=== PATIENT | male | born 2005 | race Caucasian/White ===

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

== ENCOUNTER 2023-06-18 16:32 | Emergency (ER) | payer OTHER ==
[~2023-06-18] VITALS: Ht 193 cm; Wt 108.9 kg
[2023-06-18 16:39] VITALS: BP 134/80
== END 2023-06-18 18:10 | disposition home or self-care (01) ==
LOC: ER 16:32
DX: S60.221A Contusion of right hand, initial encounter (principal); Y04.0XXA Assault by unarmed brawl or fight, initial encounter; G40.909 Epilepsy, unspecified, not intractable, without status epilepticus; F17.210 Nicotine dependence, cigarettes, uncomplicated
CPT/HCPCS: 73130; 96372; 99283-25; J1885

== ENCOUNTER 2023-07-15 04:07 | Emergency (ER) | payer OTHER ==
[~2023-07-15] VITALS: Ht 190.5 cm; Wt 99.8 kg
[2023-07-15 04:36] LABS: BASOPHILS ABSOLUTE AUTO 0.06 K/mm3 (0.00-0.23); BASOPHILS PERCENT AUTO 1 % (0-2); EOSINOPHILS PERCENT AUTO 2 % (0-6); Hematocrit 43.3 % (37.0-53.0); IMMATURE GRAN ABSOLUTE AUTO 0.02 K/mm3 (0.00-0.10); IMMATURE GRAN PERCENT AUTO 0 % (0-1); LYMPHOCYTES ABSOLUTE AUTO 2.52 K/mm3 (0.84-5.20); LYMPHOCYTES PERCENT AUTO 37 % (21-46); MONOCYTES ABSOLUTE AUTO 0.85 K/mm3 (0.16-1.47); MONOCYTES PERCENT AUTO 13 % (4-13); Mean Corpuscular HGB 30.5 pg (26.0-34.0); Mean Corpuscular HGB Conc 34.6 g/dL (31.5-36.5); Mean Corpuscular Volume 88 fL (80-100); Mean Platelet Volume 11.2 fL (9.1-12.4); NEUTROPHILS ABSOLUTE AUTO 3.23 K/mm3 (1.96-9.15); NEUTROPHILS PERCENT AUTO 48 % (41-73); Platelet Count 232 K/mm3 (150-400); RDW Coefficient Variation 12.7 % (11.7-14.2); RDW Standard Deviation 40.8 fL (35.1-46.3); Red Blood Cell Count 4.91 M/mm3 (4.30-5.90); White Blood Cell Count 6.78 K/mm3 (4.00-11.30)
[2023-07-15 04:51] LABS: Albumin/Globulin Ratio 1.1 (0.8-1.8); Bilirubin, Total 0.3 mg/dL (0.1-1.0); Bun/Creatinine Ratio 9.7 (12.0-20.0); Calcium, Blood 9.3 mg/dL (8.5-10.1); Creatinine, Blood 0.93 mg/dL (0.60-1.20); Globulin, Blood 3.6 g/dL (2.2-4.0); Potassium, Blood 3.9 mmol/L (3.5-5.5); Total Protein, Blood 7.6 g/dL (6.4-8.2)
[2023-07-15 06:00] VITALS: BP 115/75
== END 2023-07-15 06:09 | disposition home or self-care (01) ==
LOC: ER 04:07
PROVIDERS: Emergency Medicine
DX: G43.909 Migraine, unspecified, not intractable, without status migrainosus (principal); F10.90 Alcohol use, unspecified, uncomplicated; F17.210 Nicotine dependence, cigarettes, uncomplicated
CPT/HCPCS: 80053; 85025; 99284

== ENCOUNTER 2023-08-04 15:21 | Emergency (ER) | payer OTHER ==
[~2023-08-04] VITALS: Ht 190.5 cm; Wt 113.4 kg
[2023-08-04 15:24] VITALS: BP 156/104
== END 2023-08-04 16:22 | disposition home or self-care (01) ==
LOC: ER 15:21
DX: S83.004A Unspecified dislocation of right patella, initial encounter (principal); W54.1XXA Struck by dog, initial encounter; Z87.891 Personal history of nicotine dependence; J44.9 Chronic obstructive pulmonary disease, unspecified
CPT/HCPCS: 29505; 73560-RT; 96374-59; 96375-59; 99283-25; J2405; J3010

== ENCOUNTER 2023-10-11 19:17 | Emergency (ER) | payer OTHER ==
[~2023-10-11] VITALS: Ht 193 cm; Wt 111.1 kg
[2023-10-11 20:45] VITALS: BP 134/92
== END 2023-10-11 20:55 | disposition home or self-care (01) ==
LOC: ER 19:17
DX: G40.909 Epilepsy, unspecified, not intractable, without status epilepticus (principal); S09.90XA Unspecified injury of head, initial encounter; W10.9XXA Fall (on) (from) unspecified stairs and steps, initial encounter; Z63.79 Other stressful life events affecting family and household
CPT/HCPCS: 99285

== ENCOUNTER 2024-05-04 22:49 | Observation (INO) | payer OTHER ==
[~2024-05-04] VITALS: Ht 193 cm; Wt 111.1 kg
[~2024-05-04 22:49] MED LIST changes: +IBUP800 PO; +LIDO700A20 TOP; +Robaxin750 MG PO
[2024-05-04] MEDS ORDERED: HYDHCL25 PO (23:36)
[2024-05-04] MEDS ORDERED: ESCI10 PO (23:36)
[2024-05-04 23:39] LABS: BASOPHILS ABSOLUTE AUTO 0.08 K/mm3 (0.00-0.23); BASOPHILS PERCENT AUTO 1 % (0-2); EOSINOPHILS PERCENT AUTO 3 % (0-6); Hematocrit 44.5 % (37.0-53.0); Hemoglobin 15.3 g/dL (13.5-17.5); IMMATURE GRAN ABSOLUTE AUTO 0.01 K/mm3 (0.00-0.10); IMMATURE GRAN PERCENT AUTO 0 % (0-1); LYMPHOCYTES ABSOLUTE AUTO 2.79 K/mm3 (0.84-5.20); LYMPHOCYTES PERCENT AUTO 32 % (21-46); MONOCYTES ABSOLUTE AUTO 0.95 K/mm3 (0.16-1.47); MONOCYTES PERCENT AUTO 11 % (4-13); Mean Corpuscular HGB 30.4 pg (26.0-34.0); Mean Corpuscular HGB Conc 34.4 g/dL (31.5-36.5); Mean Corpuscular Volume 88 fL (80-100); Mean Platelet Volume 10.6 fL (9.1-12.4); NEUTROPHILS ABSOLUTE AUTO 4.73 K/mm3 (1.96-9.15); NEUTROPHILS PERCENT AUTO 53 % (41-73); Platelet Count 253 K/mm3 (150-400); RDW Coefficient Variation 12.2 % (11.7-14.2); RDW Standard Deviation 39.3 fL (35.1-46.3); Red Blood Cell Count 5.04 M/mm3 (4.30-5.90); White Blood Cell Count 8.86 K/mm3 (4.00-11.30)
[2024-05-04 23:53] LABS: Source, Urine Clean Catch
[2024-05-04 23:55] LABS: Bilirubin, Urine Neg (Neg); Blood, Urine Neg (Neg); Glucose Qualitative, Urine Neg (Neg); Ketones, Urine Neg (Neg); Leukocyte Esterase, Urine 1+ (Neg); Nitrite, Urine Neg (Neg); Protein, Urine Neg (Neg); Urobilinogen, Urine NORM (Normal)
[2024-05-05 00:02] LABS: Appearance, Urine Clear (Clear); Bacteria Rare /hpf; Color, Urine Yellow (P-Yellow); Red Blood Cells, Urine Not Seen /hpf (0-2); Squamous Epithelial Cells Not Seen /hpf (Few)
[2024-05-05 00:03] LABS: Ethanol (Alcohol), Blood, Med <3 mg/dL; Salicylate <1.7 mg/dL (2.8-20.0)
[2024-05-05 00:07] LABS: Alanine Aminotransfer (ALT/SGP 28 U/L (12-78); Albumin, Blood 4.1 g/dL (3.4-5.0); Albumin/Globulin Ratio 1.1 (0.8-1.8); Alk Phos 65 U/L (50-136); Anion Gap 11 mmol/L (3-11); Aspartate Aminotrans (AST/SGOT 20 U/L (12-37); Bilirubin, Total 0.2 mg/dL (0.1-1.0); Blood Urea Nitrogen 17 mg/dL (8-24); Bun/Creatinine Ratio 18.4 (12.0-20.0); CO2, Blood 23 mmol/L (21-32); Chloride, Blood 110 mmol/L (98-108); Creatinine, Blood 0.93 mg/dL (0.60-1.20); Globulin, Blood 3.8 g/dL (2.2-4.0); Glomerular Filtration Rate 121 (60-); Glucose, Blood 116 mg/dL (70-99); Potassium, Blood 3.8 mmol/L (3.5-5.5); Sodium, Blood 140 mmol/L (136-145); Total Protein, Blood 7.9 g/dL (6.4-8.2)
[2024-05-05 00:09] LABS: Acetaminophen, Random <2.0 ug/mL (10.0-30.0)
[2024-05-05 00:09] LABS: U Amphetamine Screen Not Detected; U Barbituate Screen Not Detected; U Benzodiazapine Screen Not Detected; U Buprenorphine Screen Not Detected; U Cannabinoids Screen Not Detected; U Cocaine Screen Not Detected; U Methadone Screen Not Detected; U Methamphetamine Screen Not Detected; U Opiates Screen Not Detected; U Oxycodone Screen Not Detected; U Phencyclidine Screen Not Detected
[2024-05-05 10:41] VITALS: BP 112/69
[2024-05-05 14:33] LABS: Influenza A, PCR NEGATIVE (NEGATIVE); Influenza B, PCR NEGATIVE (NEGATIVE); Resp Syncytial Virus, PCR NEGATIVE (NEGATIVE); SARS-Cov-2 (COVID-19) PCR, MMC NEGATIVE (NEGATIVE)
[2024-05-10] MEDS ORDERED: MELA3 PO (09:17)
[2024-05-10] MEDS ORDERED: SERT100 PO (09:17)
[2024-05-10] MEDS ORDERED: NICO2 PO (09:19)
[2024-05-10] MEDS ORDERED: QUET200 PO (09:19)
== END 2024-05-05 15:49 | disposition other institution (70) ==
LOC: ER 22:49 → EOR 22:50
PROVIDERS: Physician Assistant; ADMIT Emergency Medicine
DX: R45.851 Suicidal ideations (principal); F32.A Depression, unspecified; F41.9 Anxiety disorder, unspecified; F17.210 Nicotine dependence, cigarettes, uncomplicated; Z79.899 Other long term (current) drug therapy
CPT/HCPCS: 0241U; 80053; 81001; 85025; 87086; 93005; 93010; 99285-25; G0378; G0480

== ENCOUNTER 2024-05-05 12:49 | Inpatient (IN) | payer OTHER ==
[~2024-05-05 12:49] MED LIST changes: +ESCI10 PO; +HYDHCL25 PO
[2024-05-05] MEDS ORDERED: Haloperidol 5 MG Tab PO PRN (16:20)
[2024-05-05] MEDS ORDERED: TraZODone HCl 50 MG Tab PO PRN (16:20)
[2024-05-05] MEDS ORDERED: DiphenhydrAMINE HCl 50 MG Cap PO PRN (16:25)
[2024-05-05] MEDS ORDERED: Melatonin 3 MG Tab PO PRN (16:25)
[2024-05-05] MEDS ORDERED: LORazepam 2 MG Tab PO PRN (16:25)
[2024-05-05] MEDS ORDERED: OLANZapine 10 MG Vial IM PRN (16:25)
--- NOTE | 2024-05-05 16:44 | NUR ---
Admitted 15:52, All belongings logged, none in safe Bin #:[id number], [id number]
--- NOTE | 2024-05-05 17:47 | NUR ---
ADMISSION NOTE/SHIFT SUMMARY: PT ARRIVED TO [facility] AT 1552, PLEASANT AND COOPERATIVE WITH STAFF AND PEERS. PT WAS ORIENTED TO THE [facility] AND TO HIS ROOM. HIS BELONGINGS AND PHONE WERE PUT IN A BELONGINGS CRATE AND CLOSED WITH A NUMBERED ZIP TIE. PT DENIES SI, HI, AVH AND ANXIETY AT THIS TIME. HE IS PRESENTLY IN HIS ROOM. HE WAS GIVEN A JOURNAL AND A BENDY PEN.
[2024-05-05 19:34] VITALS: BP 129/87
--- NOTE | 2024-05-06 05:21 | NUR ---
Pt is A&O x4, calm, cooperative, eye contact is good. Pt reports his mood as "good," affect is euthymic. Pt denies SI, HI, and AVH. He denies current anxiety. Pt reports current back pain 4/10w RT a prior injurty. Pt is med compliant and received PRN trazadone and melatonin for sleep. Pt spent the evening watching TV with peers.
[2024-05-06 08:30] VITALS: BP 119/75
[2024-05-06] MEDS ORDERED: Nicotine Polacrilex 2 MG Gum PO PRN (08:40)
[2024-05-06] MEDS ORDERED: Citalopram Hydrobromide 20 MG Tab PO SCH (09:00)
[2024-05-06] MEDS ORDERED: Sertraline HCl 50 MG Tab PO SCH (09:00)
--- NOTE | 2024-05-06 17:49 | NUR ---
SHIFT SUMMARY PT A/O X4; PLEASANT AND COOPERATIVE WITH CARE. PT COMPLIANT WITH MEDICATIONS AND HAS PARTICIPATED IN GROUP ACTIVITIES THIS SHIFT. PT DENIES SI, HI, AH, VH, AND TH FOR THIS RN. GIVEN PRN NICOTINE GUM X1 THIS SHIFT. PT REPORTS THAT HIS REPORT IS "GOOD" THIS SHIFT AND HE SLEPT VERY WELL LAST NIGHT. PT STARTED ON ZOLOFT AND TO HAVE HIS FIRST DOSE TOMORROW.
[2024-05-06 19:31] VITALS: BP 127/79
[2024-05-06] MEDS ORDERED: QUEtiapine Fumarate 100 MG Tab PO SCH (21:00)
--- NOTE | 2024-05-07 05:20 | NUR ---
A&O x4, calm, cooperative, eye contact is good. Pt describes his mood as "good" and affect is congruent/euthymic. Pt denies SI, HI, and AVH. He denies anxiety and endorses back pain 3/10w. Pt spent the evening watching TV with peers. Pt received PRN trazodone and melatonin for sleep. He appeared to sleep all night.
[2024-05-07 08:34] VITALS: BP 105/59
--- NOTE | 2024-05-07 18:00 | NUR ---
BHARAT WILLIAMSON PT AA&OX4. PLEASANT AND COOPERATIVE WITH CARE. SPEECH AND EYE CONTACT APPROPRIATE. UP FOR ADLS, MEALS, AND GROUP. REPORTS THAT HE IS FEELING BETTER THAN YESTERDAY. PT COMPLIANT WITH MEDICATIONS. DR. LEIJA INCREASED ZOLOFT FROM 50MG-100MG. SEROQUEL INCREASED FROM 100MG-150MG. TRAZADONE DC. PT DENIES ANY MEDICATION SIDE EFFECTS. PT SPOKE WITH FAMILY TODAY. REPORTS GOOD FAMILY SUPPORT. DENIES ANY CURRENT NEEDS. WILL CONTINUE CURRENT PLAN OF CARE
[2024-05-07] MEDS ORDERED: QUEtiapine Fumarate 50 MG TAB PO SCH (21:00)
[2024-05-08] MEDS ORDERED: Sertraline HCl 100 MG Tab PO SCH (09:00)
[2024-05-08 12:11] VITALS: BP 138/81
--- NOTE | 2024-05-08 16:52 | NUR ---
SHIFT SUMMARY HAS BEEN UP IN GROUPS, MEALS AND MILIEU. HAS LISTENED TO MUSIC AND BEEN COMPLIANT WITH CARE. CALM AND EUTHYMIC THROUGH OUT THE DAY. WILL CONTINUE TO MONITOR.
[2024-05-08] MEDS ORDERED: QUEtiapine Fumarate 200 MG Tab PO SCH (21:00)
--- NOTE | 2024-05-08 21:25 | NUR ---
PATIENT REPORTS THAT HE WOULD LIKE "WHAT I USED TO HAVE" FOR HIS NIGHTTIME MEDS, IN ORDER TO FACILITATE THE BEST SLEEP POSSIBLE. HE WILL ADVOCATE FOR SELF TO DOCTOR.
--- NOTE | 2024-05-09 08:11 | NUR ---
Marcel received a call from [employer] advising that pt is scheduled to meet with a PCP named Shelia at the [facility] on 05/15/2024 at 1430pm.
--- NOTE | 2024-05-09 11:17 | NUR ---
WOKE PT UP TO GIVE MORNING MED. HE IS STILL SLEEPY AND WOULD LIKE TO SLEEP MORE. TOLD HIM IT IS OK BUT I WILL WAKE HIM UP TO INTERVIEW HIM BEFORE LUNCH.
--- NOTE | 2024-05-09 17:21 | NUR ---
PT UP AND WATCHED A MOVIE THIS AFTERNOON. LET HIM KNOW THAT HIS DISCHARGE WILL BE LATER THAN 8AM IT TAKES TIME TO GET ALL THE PAPERS AND DISCHARGE INSTRUCTIONS TOGETHER. HE CALLED HIS MOM TO LET HER KNOW. HE WAS NOT TO HAPPY ABOUT THIS NEWS, BUT EXPLAINED THE PROCESS TO HIM. STILL DENIES TO BE SI. WILL CONTINUE TO MONITOR.
[2024-05-09 18:53] VITALS: BP 131/75
[2024-05-09 20:46] VITALS: BP 108/92
--- NOTE | 2024-05-10 05:46 | NUR ---
PATIENT SLEPT THROUGH THE NIGHT WITHOUT ANY NOTED BEHAVIORS OR ISSUES. HE WILL DISCHARGE LATER TODAY. HIS MOTHER WILL BE HERE AROUND 4PM TO PICK HIM UP.
[2024-05-10 08:41] VITALS: BP 126/86
[2024-05-10] MEDS ORDERED: MELA3 PO ×2 (09:17)
[2024-05-10] MEDS ORDERED: SERT100 PO ×2 (09:17)
[2024-05-10] MEDS ORDERED: NICO2 PO ×2 (09:19)
[2024-05-10] MEDS ORDERED: QUET200 PO ×2 (09:19)
--- NOTE | 2024-05-10 13:17 | NUR ---
no change from AM assessment. Discharge instructions given and questions answered. Patient awaiting Mother to pick him up. Will continue close monitoring.
--- NOTE | 2024-05-10 16:31 | NUR ---
Patient discharged to home with mother at 1625. Personal belongings returned to patient prior to leaving the unit. No changes from earlier assessment.
== END 2024-05-10 16:25 | disposition home or self-care (01) | DRG 885 ==
LOC: BHU 12:49
PROVIDERS: ADMIT Student in an Organized Health Care Education/Training Program
DX: F33.2 Major depressive disorder, recurrent severe without psychotic features (principal); R45.851 Suicidal ideations; F17.210 Nicotine dependence, cigarettes, uncomplicated; Z79.899 Other long term (current) drug therapy
CPT/HCPCS: A9270